=== PATIENT | female | born 1945 | race Caucasian/White ===

== ENCOUNTER 2020-10-26 09:39 | Emergency (ER) | payer OTHER ==
[~2020-10-26] VITALS: Ht 177.8 cm; Wt 84.8 kg
[2020-10-26 09:39] VITALS: BP 161/84
[2020-10-26 10:27] LABS: HEMATOCRIT 36.9 % (37.0-47.0); HEMOGLOBIN 12.5 gm/dL (12.0-15.0); MCH 30.4 pg (26.0-34.0); MCHC 33.9 g/dL (28.0-37.0); MCV 89.7 fL (80.0-100.0); RBC 4.12 mil/uL (4.20-5.00); RDW 13.1 % (10.5-14.5); WBC 5.3 thou/uL (4.0-11.0)
[2020-10-26 10:45] LABS: ANION GAP 10 mmol/L (7-16); BUN 12 mg/dL (7-18); CALCIUM 8.4 mg/dL (8.5-10.1); CHLORIDE 106 mmol/L (98-107); CO2 24 mmol/L (21-32); CREATININE 0.8 mg/dL (0.6-1.0); GLUCOSE 105 mg/dL (74-106); POTASSIUM 4.2 mmol/L (3.5-5.1); SODIUM 140 mmol/L (136-145)
[2020-10-26 10:50] LABS: ALBUMIN 3.7 g/dL (3.4-5.0); SGOT 17 U/L (15-37); SGPT 23 U/L (14-59); TOTAL BILIRUBIN 0.5 mg/dL (0.2-1.0); TOTAL PROTEIN 7.2 g/dL (6.4-8.2); TROPONIN-I <0.06 ng/mL (<0.06)
[2020-10-26 11:22] LABS: URINE BILIRUBIN NEGATIVE (Negative); URINE BLOOD TRACE (Negative); URINE CLARITY SL CLOUDY; URINE COLOR YELLOW; URINE GLUCOSE-RANDOM* NEGATIVE (Negative); URINE KETONES NEGATIVE (Negative); URINE PROTEIN (DIPSTICK) NEGATIVE (Negative); URINE SPECIFIC GRAVITY 1.015 (1.005-1.035); URINE UROBILINOGEN 0.2 E.U./dl (0.2-1.0)
[2020-10-26 11:23] LABS: URINE LEUKOCYTES-REFLEX 2+ (Negative); URINE NITRITE-REFLEX POSITIVE (Negative)
[2020-10-26 11:33] LABS: BACTERIA-REFLEX >30 Many /HPF (None Seen); CASTS None Seen /LPF (None Seen); SQUAMOUS None Seen /LPF (0-3)
[2020-10-26 11:34] LABS: CRYSTALS None Seen /LPF (None Seen); URINE RBC 1-2 Rare /HPF (NONE SEEN)
[2020-10-26] MEDS ORDERED: CEPHALEXIN500 MG PO (11:36)
--- NOTE | 2020-10-26 12:48 | EKG ---
[address] [address] ELECTROCARDIOGRAM REPORT Name: WILLAM NAZARIO Room #: DEP RAFFY Bullock#: [id number] Admission: 10/26/20 Attend Phys: Discharge: 10/26/20 Date of : 47 Report #: [id number] [facility] ED Test Date: 2020-10-26 Test Time: 10:02:54 Pat Name: WILLAM NAZARIO Department: Room: Gender: F Physician Gynecologist: : [id number] Requested By: Sallie Alvarez Order Number: [id number] MD: Jesus Blake Measurements Intervals [place] Rate: 80 P: 21 LA: 125 QRS: 52 QRSD: 81 T: 51 QT: 370 QTc: 427 Interpretive Statements Sinus rhythm No previous ECG available for comparison Electronically Signed On 10-26-2020 12:48:05 CDT by Jesus Blake [email or web address] <ELECTRONICALLY SIGNED> By: Jesus Blake MD, [facility] 10/26/20 1248 1002 1002 Jesus Blake MD, FACC /EPI
== END 2020-10-26 11:34 | disposition home or self-care (01) ==
LOC: ER 09:39
PROVIDERS: Student in an Organized Health Care Education/Training Program
DX: N30.91 Cystitis, unspecified with hematuria (principal); R42 Dizziness and giddiness; Z88.5 Allergy status to narcotic agent; Z88.1 Allergy status to other antibiotic agents; Z88.0 Allergy status to penicillin; Z88.2 Allergy status to sulfonamides

== ENCOUNTER 2020-12-26 10:04 | Emergency (ER) | payer OTHER ==
[~2020-12-26] VITALS: Ht 172.7 cm; Wt 83.9 kg
[~2020-12-26 10:04] MED LIST: CEPHALEXIN500 MG PO
[2020-12-26] MEDS ORDERED: PREDNISONE 10 M10 MG PO (11:41)
[2020-12-26 12:59] VITALS: BP 162/81
== END 2020-12-26 12:59 | disposition home or self-care (01) ==
LOC: ER 10:04
DX: T78.49XA Other allergy, initial encounter (principal); X58.XXXA Exposure to other specified factors, initial encounter; Z79.899 Other long term (current) drug therapy; Z88.6 Allergy status to analgesic agent; Z88.5 Allergy status to narcotic agent; Z88.0 Allergy status to penicillin; Z88.2 Allergy status to sulfonamides; Z88.8 Allergy status to other drugs, medicaments and biological substances